=== PATIENT | female | born 1945 | race Caucasian/White ===

== ENCOUNTER → 2023-04-04 09:44 | Outpatient (REF) | payer MEDICARE, BC, SELFPAY ==
[2023-04-04 10:45] LABS: Free T4 1.64 ng/dl (0.78-2.19)
[2023-04-04 10:59] LABS: TSH 0.44 uIU/ml (0.47-4.68)
== END ==
LOC: OLABWHC 09:44
PROVIDERS: ATTENDING PHYSICIAN Internal Medicine
DX: E03.9 Hypothyroidism, unspecified (principal); D64.9 Anemia, unspecified
CPT/HCPCS: 36415; 84439; 84443

== ENCOUNTER → 2023-04-26 10:52 | Outpatient (REF) | payer MEDICARE, BC, SELFPAY ==
[2023-04-26 11:44] LABS: Urine Albumin Negative (Neg - Trace); Urine Bilirubin Negative (Negative); Urine Character Clear (Clear); Urine Color Yellow; Urine Glucose Negative (Negative); Urine Ketone Negative (Negative); Urine Leukocyte 1+ (Negative); Urine Nitrite Negative (Negative); Urine Occult Blood Negative (Negative); Urine Specific Gravity 1.015 (<1.030); Urine Urobilinogen Negative (Neg - 1+)
[2023-04-26 12:27] LABS: Urine Calcium Oxalate Crystals Present; Urine Red Blood Cell 0-2 /HPF (0-2); Urine Squamous Cell 0-2 /LPF (Few)
[2023-04-26 12:28] LABS: Urine Bacteria Few (Negative)
== END ==
LOC: OLABWHC 10:52
PROVIDERS: ATTENDING PHYSICIAN Internal Medicine
DX: N39.0 Urinary tract infection, site not specified (principal)
CPT/HCPCS: 81003; 81015; 87086

== ENCOUNTER → 2023-05-11 10:43 | Outpatient (REF) | payer MEDICARE, BC, SELFPAY ==
[2023-05-11 11:03] LABS: % Basophils 0.6 % (0-2); % Eosinophils 3.1 % (0-6); % Immature Granulocytes 0.8 % (0-0.5); % Lymphocytes 26.5 % (20.5-51.1); % Monocytes 17.3 % (1.7-9.3); % Neutrophils 51.7 % (42.2-75.2); Absolute Eosinophils 0.1 10^3/uL (0-0.7); Absolute Monocytes 0.6 10^3/uL (0.1-0.6); Absolute Neutrophils 1.9 10^3/uL (1.4-6.5); Hematocrit 30.3 % (37.0-47.0); Hemoglobin 10.1 g/dL (12.0-16.0); Mean Corp Hgb Conc. 33.3 g/dL (33.0-37.0); Mean Corpuscular Hgb 30.6 pg (27.0-31.0); Mean Corpuscular Volume 91.8 fL (81.0-99.0); Mean Platelet Volume 9.3 fL (7.4-10.4); Nucleated Red Blood Cells % 0 %; Platelet Count 119 10^3/uL (130-400); Red Cell Dist. Width 14.3 % (11.5-14.5); White Blood Cell Count 3.6 10^3/uL (4.8-10.8)
[2023-05-11 11:45] LABS: ALT (SGPT) 11 U/L (0-35); AST (SGOT) 25 U/L (14-36); Alkaline Phosphatase 63 U/L (38-126); Blood Urea Nitrogen 22 mg/dl (7-17); Calcium 9.3 mg/dl (8.4-10.2); Carbon Dioxide 23 mmol/L (22-30); Chloride 106 mmol/L (98-107); Glucose 84 mg/dl (70-99); Magnesium 1.5 mg/dl (1.6-2.3); Potassium 4.2 mmol/L (3.5-5.1); Sodium 133 mmol/L (135-145); Total Bilirubin 0.5 mg/dl (0.2-1.3); Total Protein 5.5 g/dl (6.3-8.2)
[2023-05-11 12:05] LABS: Urine Albumin Negative (Neg - Trace); Urine Bilirubin Negative (Negative); Urine Character Clear (Clear); Urine Color Yellow; Urine Glucose Negative (Negative); Urine Ketone Negative (Negative); Urine Leukocyte 2+ (Negative); Urine Nitrite Negative (Negative); Urine Occult Blood 1+ (Negative); Urine Specific Gravity 1.015 (<1.030); Urine Urobilinogen Negative (Neg - 1+)
[2023-05-11 13:13] LABS: Urine Bacteria Moderate (Negative); Urine White Cell 26-30 /HPF (0-5)
== END ==
LOC: OLABWHC 10:43
PROVIDERS: ATTENDING PHYSICIAN Internal Medicine
DX: N39.0 Urinary tract infection, site not specified (principal)
CPT/HCPCS: 80053; 81003; 81015; 83735; 85025; 87086; 87147; 87186

== ENCOUNTER → 2023-05-23 11:21 | Outpatient (REF) | payer MEDICARE, BC, SELFPAY ==
[2023-05-23 13:08] LABS: Free T4 2.31 ng/dl (0.78-2.19)
[2023-05-23 13:22] LABS: TSH 0.11 uIU/ml (0.47-4.68)
== END ==
LOC: OLABWHC 11:21
PROVIDERS: ATTENDING PHYSICIAN Internal Medicine
DX: E03.9 Hypothyroidism, unspecified (principal)
CPT/HCPCS: 36415; 84439; 84443

== ENCOUNTER → 2023-06-22 10:24 | Outpatient (REF) | payer MEDICARE, BC, SELFPAY ==
[2023-06-22 11:18] LABS: Free T4 1.01 ng/dl (0.78-2.19)
[2023-06-22 11:38] LABS: TSH 2.49 uIU/ml (0.47-4.68)
== END ==
LOC: OLABWHC 10:24
PROVIDERS: ATTENDING PHYSICIAN Internal Medicine
DX: E03.9 Hypothyroidism, unspecified (principal)
CPT/HCPCS: 36415; 84439; 84443

== ENCOUNTER → 2023-07-22 11:04 | Outpatient (REF) | payer MEDICARE, BC, SELFPAY ==
[2023-07-22 11:46] LABS: Hematocrit 33.6 % (37.0-47.0); Hemoglobin 11.1 g/dL (12.0-16.0); Mean Corpuscular Hgb 31.7 pg (27.0-31.0); Mean Platelet Volume 9.9 fL (7.4-10.4); Platelet Count 164 10^3/uL (130-400); Red Cell Dist. Width 14.7 % (11.5-14.5); White Blood Cell Count 4.6 10^3/uL (4.8-10.8)
[2023-07-22 12:34] LABS: Free T4 1.14 ng/dl (0.78-2.19)
[2023-07-22 12:40] LABS: ALT (SGPT) < 10 U/L (0-35); AST (SGOT) 25 U/L (14-36); Albumin 3.9 g/dl (3.5-5.0); Alkaline Phosphatase 51 U/L (38-126); Blood Urea Nitrogen 13 mg/dl (7-17); Calcium 9.3 mg/dl (8.4-10.2); Carbon Dioxide 27 mmol/L (22-30); Chloride 102 mmol/L (98-107); Glucose 93 mg/dl (70-99); HDL Cholesterol 87 mg/dl; LDL Cholesterol, Calculated 70 mg/dl; Magnesium 1.9 mg/dl (1.6-2.3); Potassium 4.1 mmol/L (3.5-5.1); Sodium 140 mmol/L (135-145); Total Bilirubin 0.5 mg/dl (0.2-1.3); Total Cholesterol 168 mg/dl (50-199); Total Protein 6.4 g/dl (6.3-8.2); Triglyceride 57 mg/dl (10-149); Very Low Density Lipoprotein 11 mg/dl (0-30); eGFR > 60.00
[2023-07-22 12:47] LABS: TSH 5.02 uIU/ml (0.47-4.68)
[2023-07-22 12:57] LABS: Glycohemoglobin (HgbA1c) 5.3 % (4.0-5.6)
== END ==
LOC: OLABWHC 11:04
PROVIDERS: ATTENDING PHYSICIAN Internal Medicine
DX: Z85.3 Personal history of malignant neoplasm of breast (principal); D50.9 Iron deficiency anemia, unspecified; Z79.01 Long term (current) use of anticoagulants; E53.9 Vitamin B deficiency, unspecified; E03.9 Hypothyroidism, unspecified; E87.6 Hypokalemia; E78.5 Hyperlipidemia, unspecified; E55.9 Vitamin D deficiency, unspecified; E11.9 Type 2 diabetes mellitus without complications
CPT/HCPCS: 36415; 80053; 80061; 83036; 83735; 84439; 84443; 85027

== ENCOUNTER → 2023-09-09 09:51 | Outpatient (REF) | payer MEDICARE, BC, SELFPAY ==
[2023-09-09 12:40] LABS: ALT (SGPT) < 10 U/L (0-35); AST (SGOT) 26 U/L (14-36); Albumin 3.9 g/dl (3.5-5.0); Alkaline Phosphatase 64 U/L (38-126); Blood Urea Nitrogen 18 mg/dl (7-17); Calcium 9.4 mg/dl (8.4-10.2); Carbon Dioxide 29 mmol/L (22-30); Chloride 99 mmol/L (98-107); Glucose 97 mg/dl (70-99); Potassium 4.1 mmol/L (3.5-5.1); Sodium 133 mmol/L (135-145); Total Bilirubin 0.5 mg/dl (0.2-1.3); Total Protein 6.1 g/dl (6.3-8.2); eGFR > 60.00
== END ==
LOC: OLABWHC 09:51
PROVIDERS: ATTENDING PHYSICIAN Internal Medicine
DX: I89.0 Lymphedema, not elsewhere classified (principal); R60.9 Edema, unspecified; E87.6 Hypokalemia
CPT/HCPCS: 80053

== ENCOUNTER → 2023-09-14 14:09 | Outpatient (REF) | payer MEDICARE, BC, SELFPAY ==
[2023-09-14 16:22] LABS: Blood Urea Nitrogen 15 mg/dl (7-17); Calcium 9.1 mg/dl (8.4-10.2); Carbon Dioxide 32 mmol/L (22-30); Chloride 91 mmol/L (98-107); Glucose 87 mg/dl (70-99); Potassium 3.5 mmol/L (3.5-5.1); Sodium 129 mmol/L (135-145); eGFR > 60.00
== END ==
LOC: OLABWHC 14:09
PROVIDERS: ATTENDING PHYSICIAN Internal Medicine
DX: I73.9 Peripheral vascular disease, unspecified (principal); I89.0 Lymphedema, not elsewhere classified; E44.0 Moderate protein-calorie malnutrition
CPT/HCPCS: 36415; 80048

== ENCOUNTER → 2023-09-19 13:15 | Outpatient (REF) | payer MEDICARE, BC, SELFPAY ==
[2023-09-19 15:48] LABS: Blood Urea Nitrogen 22 mg/dl (7-17); Calcium 9.6 mg/dl (8.4-10.2); Carbon Dioxide 32 mmol/L (22-30); Chloride 90 mmol/L (98-107); Glucose 87 mg/dl (70-99); Potassium 3.3 mmol/L (3.5-5.1); Sodium 129 mmol/L (135-145); eGFR > 60.00
== END ==
LOC: OLABWHC 13:15
PROVIDERS: FAMILY PHYSICIAN Internal Medicine
DX: I10 Essential (primary) hypertension (principal); I89.0 Lymphedema, not elsewhere classified; R60.9 Edema, unspecified
CPT/HCPCS: 80048

== ENCOUNTER → 2023-09-26 10:36 | Outpatient (REF) | payer MEDICARE, BC, SELFPAY ==
[2023-09-26 12:12] LABS: Blood Urea Nitrogen 24 mg/dl (7-17); Calcium 9.3 mg/dl (8.4-10.2); Carbon Dioxide 23 mmol/L (22-30); Chloride 100 mmol/L (98-107); Glucose 120 mg/dl (70-99); Potassium 4.2 mmol/L (3.5-5.1); Sodium 133 mmol/L (135-145); eGFR > 60.00
== END ==
LOC: OLABWHC 10:36
PROVIDERS: ATTENDING PHYSICIAN Internal Medicine
DX: I89.0 Lymphedema, not elsewhere classified (principal); Z85.3 Personal history of malignant neoplasm of breast; D50.9 Iron deficiency anemia, unspecified; E53.9 Vitamin B deficiency, unspecified; E87.6 Hypokalemia; E44.0 Moderate protein-calorie malnutrition
CPT/HCPCS: 36415; 80048

== ENCOUNTER → 2023-10-04 10:24 | Outpatient (REF) | payer MEDICARE, BC, SELFPAY ==
[2023-10-04 11:59] LABS: Blood Urea Nitrogen 23 mg/dl (7-17); Calcium 9.4 mg/dl (8.4-10.2); Carbon Dioxide 25 mmol/L (22-30); Chloride 98 mmol/L (98-107); Glucose 97 mg/dl (70-99); Sodium 132 mmol/L (135-145); eGFR > 60.00
== END ==
LOC: OLABWHC 10:24
PROVIDERS: ATTENDING PHYSICIAN Internal Medicine
DX: I10 Essential (primary) hypertension (principal); I73.9 Peripheral vascular disease, unspecified; Z79.01 Long term (current) use of anticoagulants
CPT/HCPCS: 36415; 80048

== ENCOUNTER 2024-06-05 16:22 | Inpatient (IN) | payer MEDICARE, BC, SELFPAY ==
[2024-06-05] VITALS (22 sets, daily range): BP systolic 86–149; BP diastolic 27–94; BMI 23.5; BMI 25.4
[2024-06-05 12:33] LABS: % Basophils 0.2 % (0-2); % Eosinophils 2.2 % (0-6); % Immature Granulocytes 0.7 % (0-0.5); % Lymphocytes 14.6 % (20.5-51.1); % Monocytes 11.2 % (1.7-9.3); % Neutrophils 71.1 % (42.2-75.2); Absolute Eosinophils 0.1 10^3/uL (0-0.7); Absolute Lymphocytes 0.7 10^3/uL (1.2-3.4); Absolute Monocytes 0.5 10^3/uL (0.1-0.6); Absolute Neutrophils 3.2 10^3/uL (1.4-6.5); Hematocrit 19.8 % (37.0-47.0); Hemoglobin 5.5 g/dL (12.0-16.0); Mean Corp Hgb Conc. 27.8 g/dL (33.0-37.0); Mean Corpuscular Hgb 21.5 pg (27.0-31.0); Mean Corpuscular Volume 77.3 fL (81.0-99.0); Mean Platelet Volume 10.1 fL (7.4-10.4); Nucleated Red Blood Cells % 0.7 %; Platelet Count 97 10^3/uL (130-400); Red Blood Cell Count 2.56 10^6/uL (4.20-5.40); Red Cell Dist. Width 18.9 % (11.5-14.5); White Blood Cell Count 4.5 10^3/uL (4.8-10.8)
--- NOTE | 2024-06-05 12:49 | ED.GENMED ---
History of Present Illness
General
Chief Complaint: Abnormal Lab Value
Source: patient and ambulance crew
Exam Limitations: none
Time Seen by Provider: 06/05/24 12:30
History of Present Illness
History of Present Illness:
79yoF with a history of hypertension, hyperlipidemia, DVT on Eliquis, and hypothyroidism presenting via EMS for evaluation of an abnormal outpatient lab. Patient is a resident at [facility]. She had routine labs yesterday and was found to have
a hemoglobin of 4.9. Last hemoglobin was 11.1 in July 2023. Her only current complaint is bilateral leg pain which she admits is chronic. She denies any hematochezia or melena. No shortness of breath or syncope.
Past History
Past History
ED Past Medical History: HTN, Hypothyroidism, Other (Degenerative joint disease) and Other (DVT)
ED Past Surgical History: Orthopedic (Left wrist surgery)
Social History
Tobacco: Former smoker
Alcohol: None
Drug: None
Living: assisted living
Phy Exam
Physical Exam
Physical Exam:
Chronically ill appearing, pale, no acute distress
General Physical Exam
General Presentation: no apparent distress
General Skin: warm, dry and pale
General Habitus: elderly
ENT Exam
ENT Exam: normocephalic
Cardiovascular Exam
Cardiovascular Exam: regular rate/rhythm
Pulmonary Exam
Pulmonary Exam: lungs clear, no respiratory distress, no rales, no crackles and no rhonchi
Gastrointestinal Exam
Gastrointestinal Exam: other (Stool brown, hemoccult negative)
Neurological Exam
Neurological Exam: alert
Skin Exam
Skin Exam: warm/dry and pallor
Psychiatric Exam
Psychiatric Exam: normal mood/affect
Course
Orders/Labs/Results
Orders:
Orders
06/05/24 12:18
EKG [Electrocardiogram (*1)] Urgent
Reason for Study: Fatigue / Weakness
EKG- Treatment ONCE
06/05/24 12:19
Type+Screen Urgent
BBK Wristband Number:
Complete Blood Count/With Diff Urgent
Comprehensive Metabolic Panel Urgent
06/05/24 12:41
Blood Bank Products [* Blood Bank Products] Urgent
Blood Bank Products: *Packed RBC Leuko(PRBC's)
Quantity: 2
Transfuse Today: Yes
Reason: Anemia
06/05/24 15:38
Bladder Scan- Treatment ONCE
Straight cath- Treatment ONCE
Abnormal Lab Results
06/05/24
12:19
WBC 4.5 L 10^3/uL
(4.8-10.8)
RBC 2.56 L 10^6/uL
(4.20-5.40)
Hgb 5.5 L* g/dL
(12.0-16.0)
Hct 19.8 L* %
(37.0-47.0)
MCV 77.3 L fL
(81.0-99.0)
MCH 21.5 L pg
(27.0-31.0)
MCHC 27.8 L g/dL
(33.0-37.0)
RDW 18.9 H %
(11.5-14.5)
Plt Count 97 L D 10^3/uL
(130-400)
Absolute Lymphs (auto) 0.7 L 10^3/uL
(1.2-3.4)
Immature Gran % 0.7 H %
(0-0.5)
Lymphocytes % 14.6 L %
(20.5-51.1)
Monocytes % 11.2 H %
(1.7-9.3)
Glucose 104 H mg/dl
(70-99)
Total Protein 5.1 L g/dl
(6.3-8.2)
Albumin 2.8 L g/dl
(3.5-5.0)
Crossmatch IS Only See Detail
06/05/24 12:19
06/05/24 12:19
Vital Signs
Initial and Last Documented VS:
Initial Vital Signs
BP
86/73
06/05/24 12:11
Last Documented Vital Signs
Temp Pulse Resp BP Pulse Ox
98.6 F 77 20 134/58 94
06/05/24 15:11 06/05/24 15:11 06/05/24 15:11 06/05/24 15:11 06/05/24 15:11
MDM/Problems Addressed
Differential Diagnosis Includes:
79yoF here for a hemoglobin of 4.9 on outpatient labs yesterday. Denies any active bleeding. Last hemoglobin in July 2023 was 11.1. BP documented as 86/73 on arrival although she is normotensive on initial exam. She is pale and chronically ill
appearing but non toxic. Stool brown and hemoccult negative. Differential diagnosis includes but is not limited to: blood loss anemia, malignancy, anemia of chronic disease, MAHENDRA
Hemoglobin 5.5 on today's labs. Consent obtained and 2 units PRBCs ordered. Platelets also low at 97. Patient admitted for further evaluation and management.
*Critical Care Note
Total Time (30-74mins, 75-104mins- exclusive of procedures): Not Applicable
ED Attending Note
-
Portions of this chart may have been created with voice recognition software.� Occasional wrong word or��sound alike� substitutions may have occurred due to the inherent limitations of voice recognition software.
Discharge Plan
Departure
Patient Disposition: Admit
Date of Disposition: 06/05/24
Time of Disposition: 13:47
Presentation/result/management discussed w/ accepting MD/DO: Hospitalist
Discharge Problem:
Anemia
Prescriptions:
No Action
labetalol 100 MG tablet
100 mg PO BID
letrozole 2.5 MG tablet
2.5 mg PO DAILY
multivitamin with folic acid [Tab-A-Genesis] 1 TABLET tablet
1 tab PO DAILY
cholecalciferol (vitamin D3) 125 MCG tablet,disintegrating
125 mcg PO MONTHLY
acetaminophen 325 MG tablet
650 mg PO Q6HPRN PRN (Reason: mild to moderate pain)
levothyroxine 100 MCG tablet
50 mcg PO DAILY
Eliquis 2.5 MG tablet
2.5 mg PO BID Qty: 60 0RF
alendronate [Fosamax] 70 mg Tablet
70 mg PO FR
sodium chloride 1 gram Tablet
1,000 mg PO DAILY
magnesium hydroxide [Milk of Magnesia] 400 mg/5 mL Suspension
2,400 mg PO HSPRN PRN (Reason: if no bm by 2nd day)
bisacodyl [Dulcolax (bisacodyl)] 10 mg Suppository
10 mg MT DAILYPRN PRN (Reason: if no bm by 3rd day)
Fleet Enema 19-7 gram/118 mL Enema
118 ml MT DAILYPRN PRN (Reason: if no bm by 4th day)
nystatin 100,000 unit/gram Powder
1 applic TOPICAL BIDPRN PRN (Reason: groin/folds)
fluoxetine 20 mg Capsule
20 mg PO DAILY
fluoride (sodium) [PreviDent] 1.1 % Gel
1 applic DENTAL HS
oxycodone 5 mg Tablet
5 mg PO Q6HPRN PRN (Reason: severe pain)
chlorhexidine gluconate [Peridex] 0.12 % Mouthwash
15 ml BUCCAL BID
potassium chloride 20 mEq Tablet Extended Release
20 meq PO BID
oxycodone [OxyContin] 15 mg Tablet,Oral Only,Ext.Rel.12 Hr
15 mg PO BID
furosemide 40 MG tablet
20 mg PO DAILY
gabapentin 100 MG capsule
200 mg PO TID
Referrals:
Palatt,Elton I., MD [Family Provider] -
Interventions
Interventions:
*Risk Screen - Suicide Last Done: 06/05/24 12:32
*General Assessment Last Done: 06/05/24 12:32
*Neglect/Abuse Screening Last Done: 06/05/24 12:32
*ED- Fall Risk Assessment Last Done: 06/05/24 12:32
*ED COVID-19 Vaccine History Last Done: 06/05/24 12:32
Discharge Date and Time
Print Language: CITIZEN OF [place]
[2024-06-05 12:57] LABS: ALT (SGPT) 14 U/L (0-35); AST (SGOT) 27 U/L (14-36); Albumin 2.8 g/dl (3.5-5.0); Alkaline Phosphatase 58 U/L (38-126); Blood Urea Nitrogen 12 mg/dl (7-17); Calcium 8.9 mg/dl (8.4-10.2); Carbon Dioxide 26 mmol/L (22-30); Chloride 105 mmol/L (98-107); Estimated Creatinine Clearance 39 ml/min; Glucose 104 mg/dl (70-99); Potassium 4.5 mmol/L (3.5-5.1); Sodium 137 mmol/L (135-145); Total Bilirubin 0.6 mg/dl (0.2-1.3); Total Protein 5.1 g/dl (6.3-8.2); eGFR > 60.00
[2024-06-05 13:09] LABS: Normal RBC Morphology No
[2024-06-05 13:10] LABS: Anisocytosis 1+; Hypochromasia 2+; Polychromasia Slight
--- NOTE | 2024-06-05 15:38 | EDRN ---
the pt stated that she felt like she had to pee and couldn't, this RN notified Dr. Chase and bladder scanned the pt for 853cc, per Dr. Chase's orders this RN attempted to straight cath the pt with no success, Dr. Chase will notify urology
--- NOTE | 2024-06-05 16:08 | HPS.HSE ---
Addendum entered and electronically signed by Marcelle Chase MD 06/05/24 17:40:
I personally performed a history and physical exam of the patient and discussed management with the resident. I reviewed the resident's note and agree with the documented findings and plan of care HPI/CC.
GENERAL: well developed, well nourished, female in no apparent distress
HEENT: NC/AT
HEART: regular rate and rhythm, +S1, +S2
LUNGS : clear to auscultation bilaterally
ABDOM: soft, nontender, nondistended, + bowel sounds
EXT: no cyanosis, clubbing, 4+ LE edema bilaterally--tubigrip socks taken off as not appropriately placed and pt complaining of pain--contractures to extremities
NEUROLOGIC: grossly intact
SKIN: multiple scabs from skin picking
Anemia--likely acute on chronic--Does not look like acute blood loss or hemolysis (pt denies hemoptysis, hematemesis, melena, black or bloody stools)--await iron studies, B12, folate, retic count--does not appear to be on iron supplements so IF iron
deficiency anemia, would consider GI workup--also consider heme eval--getting 2 units pRBC --trend H&H--hold eliquis
Bilateral lower extremity swelling L>R--could be due to lymphedema--doubt DVT with eliquis--will check LE US for completeness
Acute urinary retention--853 on bladder scan, unable to straight cath--Consult urology
Hypothyroidism--Continue levothyroxine--check TSH
Essential hypertension--Continue labetalol and Lasix
History of DVT 2021--Unsure why she has been on Eliquis so long--check LE US
History of breast cancer--Continue letrozole
History of osteoporosis--Continue alendronate
History of vitamin D deficiency--Continue cholecalciferol
SCD for DVT proph
code status-- DNR
Original Note:
Family Physician
-
Family Physician: Elton López MD
Chief Complaint
-
low hemoglobin on outpatient lab
History of Present Illness
79-year-old female with history of DVT on Eliquis, osteoporosis, breast cancer, LE venous stasis dermatitis presented from [facility] due to low hemoglobin levels on outpatient lab. Her routine labs showed hemoglobin was 4.9 when she came in the ED is
5.5. She was given 2 units of blood in the ED. She denies hematuria, hematochezia, hemoptysis, chest pain, palpitations, shortness of breath, fatigue.
Medical History
Past Medical History
Past Medical History: Reports Cancer (breast ) and HTN
Past Surgical History: Reports Other (Mastectomy unsure which side )
Social History
Tobacco: Former Smoker
Alcohol: None
Drug: None
Living: Long-Term
Employment: Retired
Family History
Family History: Not pertinent
Allergies / Home Medications
Allergies reflects when Allergies were last updated in [employer].
Home Medications with original date entered in [employer]
Allergy/Medication List:
Allergies
Allergy/AdvReac Type Severity Reaction Status Date / Time
No Known Allergies Allergy Verified 04/13/21 12:09
Home Medications
labetalol 100 mg tablet 100 mg PO BID Blood pressure 09/04/15
cholecalciferol (vitamin D3) 125 mcg (5,000 unit) disintegrating tablet 125 mcg PO MONTHLY Supplement 07/18/20
letrozole 2.5 mg tablet 2.5 mg PO DAILY CA 07/18/20
multivitamin with folic acid 400 mcg tablet (Tab-A-Genesis) 1 tab PO DAILY Supplement 07/18/20
acetaminophen 325 mg tablet 650 mg PO Q6HPRN PRN mild to moderate pain 03/23/21
levothyroxine 100 mcg tablet 50 mcg PO DAILY Thyroid 03/23/21
apixaban 2.5 mg tablet (Eliquis) 2.5 mg PO BID #60 tabs 03/30/21
alendronate 70 mg tablet (Fosamax) 70 mg PO FR 06/05/24
bisacodyl 10 mg rectal suppository (Dulcolax (bisacodyl)) 10 mg IN DAILYPRN PRN if no bm by 3rd day 06/05/24
chlorhexidine gluconate 0.12 % mouthwash (Peridex) 15 ml buccal BID 06/05/24
fluoride (sodium) 1.1 % dental gel (PreviDent) 1 applic dental HS 06/05/24
fluoxetine 20 mg capsule 20 mg PO DAILY 06/05/24
furosemide 40 mg tablet 20 mg PO DAILY 06/05/24
gabapentin 100 mg capsule 200 mg PO TID 06/05/24
magnesium hydroxide 400 mg/5 mL oral suspension (Milk of Magnesia) 2,400 mg PO HSPRN PRN if no bm by 2nd day 06/05/24
nystatin 100,000 unit/gram topical powder 1 applic topical BIDPRN PRN groin/folds 06/05/24
oxycodone 15 mg tablet,crush resistant,extended release 12 hr (OxyContin) 15 mg PO BID 06/05/24
oxycodone 5 mg tablet 5 mg PO Q6HPRN PRN severe pain 06/05/24
potassium chloride 20 mEq tablet,extended release 20 meq PO BID 06/05/24
sodium chloride 1 gram tablet 1,000 mg PO DAILY 06/05/24
sodium phosphates 19 gram-7 gram/118 mL enema (Fleet Enema) 118 ml IN DAILYPRN PRN if no bm by 4th day 06/05/24
Review of Systems
-
History Source: Patient
A 12 point ROS was completed and negative except as noted: Yes
Physical Exam
Vital Signs
Vital Signs
Temp Pulse Resp BP Pulse Ox
97.6 F 79 16 131/70 98
06/05/24 16:03 06/05/24 16:03 06/05/24 16:03 06/05/24 16:03 06/05/24 16:03
Physical Exam
General: No Apparent Distress and Comfortable
HEENT: NormoCephalic and Anicteric
Respiratory: Clear; No Wheezes, Rales, Rhonchi or Crackles
Cardiac: S1/S2, Regular Rhythm and Murmur (systolic HONEY )
GI: Soft, Non Tender, Non Distended and Normal Bowel Sounds
Musculoskeletal: Edema, Left Lower Extremity (2+ pitting)
Skin: Other (Purplish discoloration in the lower extremities concerns for venous stasis dermatitis)
Neuro: AO x 3
Psych: Calm
Laboratory Results
-
06/05/24 12:19
06/05/24 12:19
Laboratory Results
Total Bilirubin 0.6 mg/dl (0.2-1.3) 06/05/24 12:19
AST 27 U/L (14-36) 06/05/24 12:19
ALT 14 U/L (0-35) 06/05/24 12:19
Alkaline Phosphatase 58 U/L (38-126) 06/05/24 12:19
Data Reviewed
-
Lab Data: Labs Reviewed by me and Discussed with Physician
Impression/Plan
-
IMPRESSION:
Anemia possibly acute on chronic
Bilateral lower extremity swelling L>R
Acute urinary retention
History of iron deficiency anemia
Hypothyroidism
Essential hypertension
History of DVT
History of breast cancer
History of osteoporosis
History of vitamin D deficiency
PLAN:
Anemia possibly acute on chronic
Does not look like acute blood loss or destruction of heme
Suspect low heme reserve
Check iron, TIBC, reticulocyte count, B12, folate
Received 2 units of PRBC in ED
Hold Eliquis for now
Trend H&H
Consider hematology consult in a.m.
Bilateral lower extremity swelling L>R
Unsure what the baseline is
Check bilateral venous ultrasound
Acute urinary retention
853 on bladder scan, unable to straight cath
Consult urology
History iron deficiency anemia
Check the above labs
Continue ferrous sulfate
Hypothyroidism
Continue levothyroxine
Essential hypertension
Continue labetalol and Lasix
History of DVT
Unsure why she has been on Eliquis
No history of A-fib
Check lower extremity ultrasound
Hold Eliquis
History of breast cancer
Continue letrozole
History of osteoporosis
Continue alendronate
History of vitamin D deficiency
Continue cholecalciferol
Holding Eliquis
SCD for DVT prophylaxis
Regular diet
DNR/DNI
[2024-06-05 16:31] LABS: Reticulocyte Count 2.5 % (0.4-2.8)
[2024-06-05 16:38] LABS: Iron 28 ug/dl (37-170)
--- NOTE | 2024-06-05 16:47 | CON.MD ---
Consultation - Medical
-
see dictated note
pt brought into ER for anemia
she reports no complaints
says she has been urinating normally- no hematuria
in ER- bladder scan over 800cc- due to pt's contractures-unable to place duarte
on exam- pt's legs contracted- hard to separate
some mild vaginal stenosis- no mass or bleeding noted on limited vaginal exam
with two nurses help- i was able to digitally guide duarte into bladder- prompt return of 700cc of clear urine- duarte clamped
plan
slowly drain bladder over the next hour
eliquis is on hold given anemia
no obvious hematuria/gu source of anemia
will follow and determine timing of TOV
[2024-06-05 16:48] LABS: Percent Saturation 8 % (20-50); Total Iron Binding Capacity 324 ug/dl (265-497)
--- NOTE | 2024-06-05 16:48 | EDRN ---
urology was at the pts bedside and placed an 18 moldovan coude indwelling urinary catheter
--- NOTE | 2024-06-05 16:55 | W.PN.UPDATE ---
Update Note
Progress Note Update
correction to H&P note
No history of MAHENDRA, patient is not currently taking ferrous sulfate at home
[2024-06-05 17:15] LABS: Ferritin 11.6 ng/ml (11.1-264.0)
[2024-06-05 17:40] LABS: Hemoglobin 8.3 g/dL (12.0-16.0)
[2024-06-05 17:46] LABS: Vitamin B12 305 pg/ml (239-931)
--- NOTE | 2024-06-05 18:13 | EDRN ---
this RN called the receiving unit and notified them that paper report was tubed up
--- NOTE | 2024-06-05 18:50 | PTCARENOTE ---
Received pt from ER via stretcher, accompanied by ER staff. Pt AAO x3 but very forgetful. BRANTLEY; weak; pt transferred to bed with assist x2. pt stated she 'can't lay flat- I have to sit up'. VSS. On room air- pulse ox 96%, no SOB noted. Abd
soft, rounded, to start regular diet. #18 F [place] patent large amts clear yellow urine. Afebrile; skin warm and dry; scattered bruises noted on arms; pt has scattered scabbed areas on Lt arm and along upper back. Pt with +1 edema RLE; +2 edema
LLE. Skin on lower legs/Rt foot dry and reddened. Oriented to 4East. Currently resting quietly. Will continue to monitor.
[2024-06-05] MEDS: KCL 20 MEQ PO (19:48)
[2024-06-05] MEDS: TRANDATE 100 MG PO (19:48)
[2024-06-05] MEDS: OXYCONTIN (CONTROLLED RELEASE) 15 MG PO (19:48)
[2024-06-05] MEDS: PERIDEX 0.12% ORAL RINSE 15 ML PO (19:49)
[2024-06-05 20:11] LABS: Hematocrit 27.9 % (37.0-47.0); Hemoglobin 8.8 g/dL (12.0-16.0)
[2024-06-05] MEDS: NEURONTIN 200 MG PO (21:47)
[2024-06-05] MEDS: ROXICODONE 5 MG PO (22:45)
[2024-06-06 02:24] LABS: Hemoglobin 8.4 g/dL (12.0-16.0)
[2024-06-06] MEDS: SYNTHROID 50 MCG PO (05:10)
[2024-06-06 07:30] VITALS: BP 119/49
[2024-06-06 07:43] LABS: Hematocrit 28.7 % (37.0-47.0); Hemoglobin 8.9 g/dL (12.0-16.0); Mean Corpuscular Hgb 24.9 pg (27.0-31.0); Mean Corpuscular Volume 80.4 fL (81.0-99.0); Mean Platelet Volume 9.7 fL (7.4-10.4); Platelet Count 93 10^3/uL (130-400); Red Blood Cell Count 3.57 10^6/uL (4.20-5.40); Red Cell Dist. Width 18.6 % (11.5-14.5); White Blood Cell Count 4.4 10^3/uL (4.8-10.8)
[2024-06-06 08:16] LABS: Blood Urea Nitrogen 10 mg/dl (7-17); Calcium 8.7 mg/dl (8.4-10.2); Carbon Dioxide 26 mmol/L (22-30); Chloride 107 mmol/L (98-107); Estimated Creatinine Clearance 35 ml/min; Glucose 89 mg/dl (70-99); Magnesium 1.8 mg/dl (1.6-2.3); Potassium 4.2 mmol/L (3.5-5.1); Sodium 140 mmol/L (135-145); eGFR > 60.00
[2024-06-06] MEDS: KCL 20 MEQ PO ×2 (08:27→20:08)
[2024-06-06] MEDS: PERIDEX 0.12% ORAL RINSE 15 ML PO ×2 (08:27→20:08)
[2024-06-06] MEDS: VITAMIN B-12 250 MCG PO (08:27)
[2024-06-06] MEDS: SODIUM CHLORIDE 1 GRAM PO (08:27)
[2024-06-06] MEDS: TRANDATE 100 MG PO ×2 (08:28→20:03)
[2024-06-06] MEDS: PROZAC 20 MG PO (08:28)
[2024-06-06] MEDS: OXYCONTIN (CONTROLLED RELEASE) 15 MG PO ×2 (08:28→20:08)
[2024-06-06] MEDS: FEMARA 2.5 MG PO (08:28)
[2024-06-06] MEDS: THERAGRAN 1 TABLET PO (08:28)
[2024-06-06] MEDS: NEURONTIN 200 MG PO ×3 (08:28→21:28)
[2024-06-06] MEDS: LASIX 20 MG PO (08:28)
[2024-06-06] MEDS: FEOSOL PO ×2 (08:29→08:40)
--- NOTE | 2024-06-06 08:30 | W.PN.URO.CBU ---
Today's Communication / Plan
-
continue duarte
Assessment / Plan
-
urinary retention
very difficult duarte
suspect retention may be chronic given volume of urine in the bladder
would hold eliquis today to guard against hematuria as upsizing cath would be difficult
will discuss plan with med team- will likely suggest discharge with duarte and outpt TOV
Diagnosis
-
Date of Service: June 06, 2024
-
Patient Diagnosis:
anemia
urinary retention
difficult duarte placement
Subjective
-
pt has no complaints
did not realize cath was still in
urine clear
denies any problems urinating at home
Objective
-
Vital Signs
Temp Pulse Resp BP Pulse Ox
98.9 F 77 20 119/49 93
06/06/24 07:30 06/06/24 07:30 06/06/24 07:30 06/06/24 07:30 06/06/24 07:30
Intake and Output
06/05/24 06/06/24 06/07/24
06:59 06:59 06:59
Intake Total 500 / 500
Output Total 1550 / 1550
Balance -1050 / -1050
Intake:
Oral fluids 0 / 0
Blood Product Amount Infused ( 500 / 500
mL)
Packed Rbc Leukoreduced Unit 250 / 250
[id number]
Packed Rbc Leukoreduced Unit 250 / 250
[id number]
Output:
Urine, Duarte 1550 / 1550
Laboratory Results
06/06/24 07:00
Review of Systems
-
Constitutional: Fatigue
Respiratory: No Symptoms
Cardiac: No Symptoms
Abdomen/GI: No Symptoms
Musculoskeletal: Joint Pain
Physical Exam
-
General - no acute distress
Abdomen - soft, non-tender
Genitalia - duarte in place
[2024-06-06] MEDS: MAGNESIUM SULFATE 100 IV (09:34)
--- NOTE | 2024-06-06 09:56 | CON.GI ---
Addendum entered and electronically signed by Lino Bolanos DO 06/06/24 13:48:
I saw and examined the patient.
The INFORMATICA DEVELOPER's note was reviewed and I agree with the note.
Comment: Ms. Clayton is a 79 y.o with past medical history as detailed below where she presented with SNF for anemia. She was found to have a Hgb 5s and labs demonstrating MAHENDRA. Otherwise, she denies any overt bloody and/or dark stools. Further, heme
(-) brown stools on exam on admission. She is on eliquis for her A Fib but no other NSAIDs or antiplatelets. She denies any unintentional weight loss or known family hx of GI malignancy. She has never had a prior EGD or colonoscopy in the past. The
etiology of her iron deficiency anemia is likely multifactorial and there may be a component of a hematological process as well. Regardless, patient would benefit from a bidirectional endoscopy for further evaluation of her significant iron
deficiency anemia. However, despite extensive conversations with both Jodie and myself with patient this afternoon, the patient declines any further workup and/or testing. She specifically stated that she does not want to undergo any further
procedures and demonstrated understanding that we could be potentially missing an occult neoplasm/malignancy. Despite extensive conversations, she demonstrated understanding that we may be missing a potential malignancy but again she declines any
further EGD/colon. If patient were to change her mind, would consider a bidirectional endoscopy this admission for further evaluation. For now, we will defer any plans for an upper endoscopy or colonoscopy given patient's wishes. Agree with the
rest of the recommendations as outlined below and ongoing supportive care.
Discussed with primary internal medicine team. GI will sign-off, please call back with any questions or concerns.
Original Note:
Consultation
-
Date/Time Consultation Requested: 06/06/24 0920
Date/Time Consultation Performed: 06/06/24 1000
Requesting Provider: Leopoldo Bowden MD
Performing Provider: DEMARCUS Martin, Lino Bolanos DO
Reason for Consultation: anemia
Medical History
Chief Complaint / HPI
Chief Complaint: abnormal labs
History of Present Illness:
Pt is an 79yo with hx DVT on Eliquis, moderate HH per prior imaging, osteoporosis on Fosamax, breast CA (? lumpectomy and radiation)on Letrazole, hypothyroidism,vitamin D Deficiency, DDD, scoliosis, venous stasis presents from SNF with anemia. On
admission she is noted with hb g 5.5 with MCV 77.3, with also noted pancytopenia with WBC 4.5 and platelet 97,000. Iron studies c/w with iron deficiency with iron 28, TIBC 324, % sat 8, and ferritin 11.6. Pt also with albumin 2.8. In review of
prior labs pt with hbg 81- range in last few years. In ER stool was brown and heme neg. she was also noted with urinary retention with urology eval on admission and difficulty duarte placement.
In review with patient she denies any symptoms. She denies shortness of breath, dysphagia, odynophagia, GERD, nausea, vomiting, abdominal pain, diarrhea, constipation, blood or black in stools. She denies any hx EGD or colonoscopy in past.
She denies any hx prior liver or hematology issues in past.
Past Medical History
Past Medical History: Cancer (breast CA(? lumpectomy and radiation)), Hypothyroidism and Other (DVT on eliquis, osteoporosis, venous stasis dermatitis, vitamin D deficiency, DDD, scoliosis , moderate HH)
Social History
Tobacco: Former Smoker
Alcohol: Former (social in past )
Drug: None
Living: [facility]
Employment: Retired
Family History
Family History: Other (denies family hx GI malignancies, or liver problems)
Allergies / Home Medications
Allergy/AdvReac Type Severity Reaction Status Date / Time
No Known Allergies Allergy Verified 04/13/21 12:09
�Medication �Instructions �Recorded
labetalol 100 mg tablet 100 mg PO BID Blood pressure 09/04/15
cholecalciferol (vitamin D3) 125 125 mcg PO MONTHLY Supplement 07/18/20
mcg (5,000 unit) disintegrating
tablet
letrozole 2.5 mg tablet 2.5 mg PO DAILY CA 07/18/20
multivitamin with folic acid 400 1 tab PO DAILY Supplement 07/18/20
mcg tablet (Tab-A-Genesis)
acetaminophen 325 mg tablet 650 mg PO Q6HPRN PRN mild to 03/23/21
moderate pain
levothyroxine 100 mcg tablet 50 mcg PO DAILY Thyroid 03/23/21
apixaban 2.5 mg tablet (Eliquis) 2.5 mg PO BID #60 tabs 03/30/21
alendronate 70 mg tablet (Fosamax) 70 mg PO FR BONE 06/05/24
bisacodyl 10 mg rectal suppository [address] DAILYPRN PRN if no bm by 06/05/24
(Dulcolax (bisacodyl)) 3rd day
chlorhexidine gluconate 0.12 % 15 ml buccal BID MOUTHWASH 06/05/24
mouthwash (Peridex)
fluoride (sodium) 1.1 % dental gel 1 applic dental HS MOUTH CARE 06/05/24
(PreviDent)
fluoxetine 20 mg capsule 20 mg PO DAILY Mental 06/05/24
Health/Anxiety
furosemide 40 mg tablet 20 mg PO DAILY Fluid 06/05/24
Retention/Swelling
gabapentin 100 mg capsule 200 mg PO TID NEUROPATHIC PAIN 06/05/24
magnesium hydroxide 400 mg/5 mL 2,400 mg PO HSPRN PRN if no bm by 06/05/24
oral suspension (Milk of Magnesia) 2nd day
nystatin 100,000 unit/gram topical 1 applic topical BIDPRN PRN 06/05/24
powder groin/folds
oxycodone 15 mg tablet,crush 15 mg PO BID Pain 06/05/24
resistant,extended release 12 hr
(OxyContin)
oxycodone 5 mg tablet 5 mg PO Q6HPRN PRN severe pain 06/05/24
potassium chloride 20 mEq 20 meq PO BID Supplement 06/05/24
tablet,extended release
sodium chloride 1 gram tablet 1,000 mg PO DAILY Supplement 06/05/24
sodium phosphates 19 gram-[address] DAILYPRN PRN if no bm by 06/05/24
gram/118 mL enema (Fleet Enema) 4th day
Review of Systems
-
History Source: Patient
Constitutional: Reports No Symptoms
EENT: Reports No Symptoms
Respiratory: Reports No Symptoms
Cardiac: Reports No Symptoms
Abdomen/GI: Reports No Symptoms
: Reports Difficulty Voiding
Musculoskeletal: Reports Joint Pain
Skin: Reports No Symptoms
Neurological: Reports No Symptoms
Endocrine: Reports No Symptoms
Hematologic/Lymphatic: Reports No Symptoms
Vital Signs
Temp Pulse Resp BP Pulse Ox
98.9 F 77 20 119/49 93
06/06/24 07:30 06/06/24 07:30 06/06/24 07:30 06/06/24 08:28 06/06/24 07:30
Physical Exam
Exam
General: Well Developed, Well Nourished, No Apparent Distress and Other (elderly female with noted spinal asymmetry in chair )
HEENT: Normocephalic
Respiratory: Clear
Cardiac: Regular Rhythm
GI: Soft, Non Tender and Non Distended
Rectal: Other (heme neg in ER)
Musculoskeletal: No Clubbing and No Cyanosis
Skin: Warm and Dry
Neuro: Awake, Alert and AO x 3
Psych: Calm
Results
WBC 4.4 10^3/uL (4.8-10.8) L 06/06/24 07:00
Hgb 8.9 g/dL (12.0-16.0) L 06/06/24 07:00
Hct 28.7 % (37.0-47.0) L 06/06/24 07:00
MCV 80.4 fL (81.0-99.0) L 06/06/24 07:00
Plt Count 93 10^3/uL (130-400) L 06/06/24 07:00
Absolute Neuts (auto) 3.2 10^3/uL (1.4-6.5) 06/05/24 12:19
Sodium 140 mmol/L (135-145) 06/06/24 07:00
Potassium 4.2 mmol/L (3.5-5.1) 06/06/24 07:00
Chloride 107 mmol/L (98-107) 06/06/24 07:00
Carbon Dioxide 26 mmol/L (22-30) 06/06/24 07:00
BUN 10 mg/dl (7-17) 06/06/24 07:00
Creatinine 0.9 mg/dL (0.6-1.0) 06/06/24 07:00
Calcium 8.7 mg/dl (8.4-10.2) 06/06/24 07:00
Total Bilirubin 0.6 mg/dl (0.2-1.3) 06/05/24 12:19
AST 27 U/L (14-36) 06/05/24 12:19
ALT 14 U/L (0-35) 06/05/24 12:19
Alkaline Phosphatase 58 U/L (38-126) 06/05/24 12:19
Diagnostic Image Results:
03/26/21 CT Abd Aorta Angio W/ Run Off
IMPRESSION:
1. Severe diffuse anasarca.
2. Severe subcutaneous edema throughout both lower extremities which could be secondary to venous stasis or cellulitis.
3. No CT evidence for soft tissue abscess or acute osteomyelitis.
4. Small volume of abdominal and pelvic ascites.
5. Severe discogenic degenerative disease in the lower thoracic and upper lumbar spine.
6. Severe arthritis in the right hip and moderate arthritis in the left hip.
ABDOMINAL AORTA:
1. Moderate to severe calcific atherosclerotic plaque without evidence for aneurysmal dilatation.
2. Mild calcific atherosclerotic plaque at the origins of the celiac, superior mesenteric, and bilateral renal arteries causing less than 25% diameter stenoses.
RIGHT LOWER EXTREMITY:
1. Severe calcific atherosclerotic plaque in the proximal right common iliac artery causing a greater than 70% diameter stenosis.
2. Mild amount of calcific atherosclerotic plaque in the right external iliac, right common femoral, right superficial femoral, and right popliteal arteries causing less than 25% diameter stenosis.
3. Moderate amount of calcific atherosclerotic plaque in the proximal anterior tibial artery and tibioperoneal trunk causing less than 50% diameter stenoses.
4. Three-vessel runoff to the right foot.
LEFT LOWER EXTREMITY:
1. Severe calcific atherosclerotic plaque in the distal left common iliac artery causing a greater than 70% diameter stenosis.
2. Mild amount of calcific atherosclerotic plaque in the left external iliac and left common femoral arteries causing less than 25% diameter stenosis.
3. Moderate to large amount of calcific atherosclerotic plaque in the left mid superficial femoral artery causing a 50-70% diameter stenosis.
4. Occlusion of the left posterior tibial artery in the lower leg.
5. Patent left anterior tibial and peroneal arteries with two-vessel runoff to the level of the left foot.
12/04/20 CT Lumbar Spine W/o Iv Contras
Thoracolumbar scoliosis again identified without significant progression.
Degenerative changes throughout the lumbar spine with some progression in comparison to prior MRI with spinal stenosis most prominent at the L3-L4 levels.
Please see above comments concerning disc bulges.
Likely small bilateral pleural effusions and at least moderate size hiatal hernia suspected.
Prior GI Procedures:
EGD: none
Colonoscopy: none
Assessment / Plan
-
Pt is an 79yo with hx DVT on Eliquis, moderate HH per prior imaging, osteoporosis on Fosamax, breast CA (? lumpectomy and radiation)on Letrazole, hypothyroidism,vitamin D Deficiency, DDD, scoliosis, venous stasis presents from SNF with anemia. On
admission she is noted with hb g 5.5 with MCV 77.3, with also noted pancytopenia with WBC 4.5 and platelet 97,000. Iron studies c/w with iron deficiency with iron 28, TIBC 324, % sat 8, and ferritin 11.6. Pt also with albumin 2.8. In review of
prior labs pt with hbg 8-11- range in last few years. In ER stool was brown and heme neg. she was also noted with urinary retention with urology eval on admission and difficulty duarte placement. She denies any hx EGD or colonoscopy in past.
-microcytic iron deficiency anemia
-pancytopenia
-moderate HH per prior imaging
-urinary retention and difficulty duaret placement during admission
-hypoalbuminemia
-prior noted abdominal ascites on imaging
-DVT on Eliquis prior to admission
other med problems:
-breast CA with ?prior lumpectomy and radiation
-hypothyroidism
-osteoporosis on Fosamax
-vitamin D deficiency
-DDD/scoliosis
-hypothyroidism
-venous stasis
-prior CT imaging with changes of right heart failure
-prior noted mild CBD dilatation 8.2 mm
PLAN:
etiology of anemia with iron deficiency related to underlying GI issue -josé luis lesion with hx HH, PUD, esophagitis with hx fosamax use, underlying AVM, colon CA/polyp with no prior screening vs other
with pancytopenia cannot exclude underlying heme vs underlying liver issue with portal HTN with anemia
s/p transfusion with hbg up to 8.9 today
will add IV iron
trend hbg
add PPI daily
pt was on Eliquis prior to admission last dose 06/05
discussed with hx breast CA and concern for underlying liver issue consider CT, Also discussed with Iron deficiency anemia will need to consider EGD/colon if neg capsule
she states she is decision maker and declines further testing stating it is 'overkill with testing'
she also declined for me to call family
she politely declines testing and is aware that underlying liver disease, malignancy or other occult process can be missed without testing
I advised her to consider options and Dr. Bolanos will review again with per today
cont diet as tolerated
OP follow up to further review if patient is agreeable to proceed with testing
-
-
Thank you for consultation and allowing me to participate in the patient's care. Please call the operations logistics analyst GI physician during the after hours with any questions or concerns.
[2024-06-06 10:27] LABS: TSH Reflex To Free T4 5.31 uIU/ml (0.47-4.68)
[2024-06-06 10:55] LABS: Free T4 1.48 ng/dl (0.78-2.19)
[2024-06-06] MEDS: PROTONIX 40 MG PO (12:32)
--- NOTE | 2024-06-06 13:43 | W.PN.UPDATE ---
Update Note
Progress Note Update
reviewed with nursing. Pt frustrated with lab draws. Current hbg pending but no signs of aggressive bleeding will hold H/H later today and repeat in AM. further recs per Dr. Bolanos.
--- NOTE | 2024-06-06 13:59 | W.PN.HOSP.TC ---
Addendum entered and electronically signed by Marcelle Chase MD 06/06/24 17:41:
I saw and evaluated the patient independently. I reviewed the resident�s note and agree with findings and plan as documented by Dr. Bowden.
GENERAL: well developed, well nourished, female in no apparent distress
HEENT: NC/AT
HEART: regular rate and rhythm, +S1, +S2
LUNGS : clear to auscultation bilaterally
ABDOM: soft, nontender, nondistended, + bowel sounds
EXT: no cyanosis, clubbing, 4+ LE edema bilaterally-contractures to extremities
NEUROLOGIC: grossly intact
: duarte with clear yellow urine
SKIN: multiple scabs from skin picking
Anemia--likely acute on chronic from iron and B12 deficiency- iron studies c/w iron deficiency, B12 low normal, retic count normal--not on iron supplements--apprec GI--pt declines GI workup--s/p 2 units pRBC--since no procedure, can restart eliquis
Bilateral lower extremity swelling L>R--could be due to lymphedema--doubt DVT with eliquis--will check LE US for completeness
Acute urinary retention--853 on bladder scan, unable to straight cath--apprec urology--duarte cath placed--would d/c pt with duarte and f/u with urology to discuss suprapubic tube....
Hypothyroidism--Continue levothyroxine-- TSH OK
Essential hypertension--Continue labetalol and Lasix
History of DVT 2021--Unsure why she has been on Eliquis so long-- LE US neg for DVT--consider stopping Eliquis?
History of breast cancer--Continue letrozole
History of osteoporosis--Continue alendronate
History of vitamin D deficiency--Continue cholecalciferol
SCD for DVT proph
code status-- DNR
Original Note:
Today's Communication/Plan
-
Start ferrous sulfate and cyanocobalamin tablets
GI on board, patient declined any further workup for iron deficiency anemia.
Patient is competent and fully understands the risk of missing a potential neoplasm/malignancy or other source of bleeding.
Potential discharge
Assessment / Plan
Assessment / Plan
IMPRESSION:
Anemia possibly acute on chronic
Bilateral lower extremity swelling L>R
Acute urinary retention
Hypothyroidism
Essential hypertension
History of DVT
History of breast cancer
History of osteoporosis
History of vitamin D deficiency
PLAN:
Anemia due to iron and B12 deficiency
Does not look like acute blood loss or destruction of heme
Suspect low heme reserve
Hb improved to 8.3 after 2 units of PRBC
Low iron, ferritin, B12 levels
Start ferrous sulfate and cyanocobalamin tablets
GI on board, patient declined any further workup for iron deficiency anemia.
Patient is competent and fully understands the risk of missing a potential neoplasm/malignancy or other source of bleeding.
GI signed off.
Potential discharge with outpatient workup if patient changes her mind
Bilateral lower extremity swelling L>R
Unsure what the baseline is
Negative DVT on ultrasound
Acute urinary retention
853 on bladder scan, unable to straight cath
Urology following
Now patient is on Duarte
Voiding trials? before dc
History iron deficiency anemia
Check the above labs
Continue ferrous sulfate
Hypothyroidism
Continue levothyroxine
Essential hypertension
Continue labetalol and Lasix
History of DVT
Unsure why she has been on Eliquis
No history of A-fib
Check lower extremity ultrasound
Hold Eliquis
History of breast cancer
Continue letrozole
History of osteoporosis
Continue alendronate
History of vitamin D deficiency
Continue cholecalciferol
Holding Eliquis
SCD for DVT prophylaxis
Regular diet
DNR/DNI
Anticipated Discharge: Within 24 hours
Subjective/Interval History
-
Date of Service: June 06, 2024
Patient currently on Duarte due to acute urinary retention
Objective Data
-
Labs:
Laboratory Results
06/06/24 06/06/24 06/06/24
02:14 07:00 13:42
WBC 4.4 L
Hgb 8.4 L 8.9 L Cancelled
Hct 27.0 L 28.7 L Cancelled
Plt Count 93 L
Sodium 140
Potassium 4.2
Chloride 107
Carbon Dioxide 26
BUN 10
Creatinine 0.9
Glucose 89
Calcium 8.7
Vital Signs:
Vital Signs
Temp Pulse Resp BP Pulse Ox
98.9 F 77 20 119/49 93
06/06/24 07:30 06/06/24 07:30 06/06/24 07:30 06/06/24 08:28 06/06/24 07:30
I&O
06/05/24 06/06/24 06/07/24
06:59 06:59 06:59
Intake Total 500 / 500
Output Total 1550 / 1550
Balance -1050 / -1050
Review of Systems
-
All other systems: Reviewed and negative
Physical Exam
-
General: No Apparent Distress and Comfortable
HEENT: Normocephalic and Atraumatic
Respiratory: Clear to Auscultation; Negative Wheezes or Rales
Cardiac: Regular Rhythm and S1/S2
GI: Soft, Nontender and Nondistended
Genito-urinary: Duarte
Musculoskeletal: Edema, Left Lower Extrem
Skin: Warm and Dry
Neuro: AO x 3
Psych: Calm
Data Reviewed
-
Diagnostic Radiology: Report Reviewed by me and Discussed with Physician
Labs: Labs Reviewed by me and Discussed with Physician
[2024-06-06] MEDS: FERRLECIT 110 MG IV (14:00)
[2024-06-06 15:55] VITALS: BP 101/46
[2024-06-06 23:19] VITALS: BP 124/48
[2024-06-07] MEDS: SYNTHROID 50 MCG PO (05:34)
--- NOTE | 2024-06-07 06:26 | DOWNTIME ---
There was a [employer] Client Director Of Training Downtime on 06/07/2024 from 0200 to 06/08/2023 at 0318 . Downtime documentation of patient's care, including medication administrations, has been reconciled in the electronic record per guidelines. Refer to the
patient's paper chart under the miscellaneous tab to see printed paper medication records and downtime forms.
[2024-06-07 07:15] VITALS: BP 134/52
[2024-06-07 07:17] LABS: Hematocrit 27.3 % (37.0-47.0); Hemoglobin 8.4 g/dL (12.0-16.0); Mean Corp Hgb Conc. 30.8 g/dL (33.0-37.0); Mean Corpuscular Hgb 24.7 pg (27.0-31.0); Mean Corpuscular Volume 80.3 fL (81.0-99.0); Platelet Count 81 10^3/uL (130-400); Red Cell Dist. Width 19.6 % (11.5-14.5); White Blood Cell Count 3.5 10^3/uL (4.8-10.8)
[2024-06-07 07:18] LABS: INR 1.04; PT 14.1 Sec (11.4-14.6)
[2024-06-07 07:40] LABS: Blood Urea Nitrogen 9 mg/dl (7-17); Calcium 8.2 mg/dl (8.4-10.2); Carbon Dioxide 28 mmol/L (22-30); Chloride 108 mmol/L (98-107); Estimated Creatinine Clearance 40 ml/min; Glucose 83 mg/dl (70-99); Magnesium 2.4 mg/dl (1.6-2.3); Potassium 3.5 mmol/L (3.5-5.1); Sodium 138 mmol/L (135-145); eGFR > 60.00
[2024-06-07] MEDS: FEMARA 2.5 MG PO (08:40)
[2024-06-07] MEDS: PERIDEX 0.12% ORAL RINSE 15 ML PO (08:40)
[2024-06-07] MEDS: NEURONTIN 200 MG PO ×2 (08:40→15:14)
[2024-06-07] MEDS: OXYCONTIN (CONTROLLED RELEASE) 15 MG PO (08:40)
[2024-06-07] MEDS: TRANDATE 100 MG PO (08:41)
[2024-06-07] MEDS: VITAMIN B-12 250 MCG PO ×2 (08:41)
[2024-06-07] MEDS: PROZAC 20 MG PO (08:41)
[2024-06-07] MEDS: SODIUM CHLORIDE 1 GRAM PO (08:41)
[2024-06-07] MEDS: PROTONIX 40 MG PO (08:41)
[2024-06-07] MEDS: THERAGRAN 1 TABLET PO (08:42)
[2024-06-07] MEDS: LASIX 20 MG PO (08:42)
[2024-06-07] MEDS: KCL 20 MEQ PO (08:42)
[2024-06-07] MEDS: FEOSOL 325 MG PO (08:42)
--- NOTE | 2024-06-07 08:42 | W.PN.URO.CBU ---
Today's Communication / Plan
-
continue duarte
start bethanechol
Assessment / Plan
-
urinary retention
very difficult duarte
suspect retention may be chronic given volume of urine in the bladder
urine remains clear- ok to restart eliquis when medically indicated
start bethanechol
would rec discharge with duarte if going home soon- then schedule outpt f/u
if here until tuesday- could perform voiding trial in house
Diagnosis
-
Date of Service: June 07, 2024
-
Patient Diagnosis:
anemia
urinary retention
difficult duarte placement
Subjective
-
pt c/o of leg pain
doesnt realize she has a duarte in
urine clear
appears no ucx sent- but no signs of infx
Objective
-
Vital Signs
Temp Pulse Resp BP Pulse Ox
98.5 F 74 16 134/52 92
06/06/24 23:19 06/07/24 07:15 06/07/24 07:15 06/07/24 07:15 06/07/24 07:15
Intake and Output
06/06/24 06/07/24 06/08/24
06:59 06:59 06:59
Intake Total 500 / 500 600 / 600
Output Total 1550 / 1550 1075 / 1075
Balance -1050 / -1050 -475 / -475
Intake:
Oral fluids 0 / 0 600 / 600
Blood Product Amount Infused ( 500 / 500
mL)
Packed Rbc Leukoreduced Unit 250 / 250
[id number]
Packed Rbc Leukoreduced Unit 250 / 250
[id number]
Output:
Urine, Duarte 1550 / 1550 1075 / 1075
Laboratory Results
06/07/24 06:10
06/07/24 06:10
Review of Systems
-
Constitutional: Fatigue
Respiratory: No Symptoms
Cardiac: No Symptoms
Abdomen/GI: No Symptoms
Musculoskeletal: Joint Pain
Physical Exam
-
General - no acute distress
Abdomen - soft, non-tender
Extremities - contracted
[2024-06-07 09:34] VITALS: BP 133/59; PULSE 76
--- NOTE | 2024-06-07 11:24 | W.PN.HOSP.TC ---
Addendum entered and electronically signed by Marcelle Chase MD 06/07/24 14:00:
I saw and evaluated the patient independently. I reviewed the resident�s note and agree with findings and plan as documented by Dr. Bowden.
GENERAL: well developed, well nourished, female in no apparent distress
HEENT: NC/AT
HEART: regular rate and rhythm, +S1, +S2
LUNGS : clear to auscultation bilaterally
ABDOM: soft, nontender, nondistended, + bowel sounds
EXT: no cyanosis, clubbing, 4+ LE edema bilaterally-contractures to extremities
NEUROLOGIC: grossly intact
: duarte with clear yellow urine
SKIN: multiple scabs from skin picking
Anemia--likely acute on chronic from iron and B12 deficiency- iron studies c/w iron deficiency, B12 low normal, retic count normal--not on iron supplements prior to admission--apprec GI--pt declines GI workup--s/p 2 units pRBC--since no procedure,
can restart eliquis
Bilateral lower extremity swelling L>R--could be due to lymphedema--doubt DVT with eliquis-- LE US neg for DVT
Acute urinary retention--853 on bladder scan, unable to straight cath--apprec urology--duarte cath placed--would d/c pt with duarte and f/u with urology to discuss suprapubic tube....
Hypothyroidism--Continue levothyroxine-- TSH OK
Essential hypertension--Continue labetalol and Lasix
History of DVT 2021--Unsure why she has been on Eliquis so long-- LE US neg for DVT--consider stopping Eliquis?
History of breast cancer--Continue letrozole
History of osteoporosis--Continue alendronate
History of vitamin D deficiency--Continue cholecalciferol
SCD for DVT proph
code status-- DNR
ok for d/c
Original Note:
Today's Communication/Plan
-
Discharged on Duarte catheter to [place]
Follow-up with outpatient urology -- discussion for suprapubic catheter
Start bethanechol 25 mg p.o. twice daily
Assessment / Plan
Assessment / Plan
IMPRESSION:
Anemia possibly acute on chronic
Bilateral lower extremity swelling L>R
Acute urinary retention
Hypothyroidism
Essential hypertension
History of DVT
History of breast cancer
History of osteoporosis
History of vitamin D deficiency
PLAN:
Anemia due to iron and B12 deficiency
Does not look like acute blood loss or destruction of heme
Suspect low heme reserve
Hb improved to 8.3 after 2 units of PRBC
Low iron, ferritin, B12 levels
Start ferrous sulfate and cyanocobalamin tablets
GI on board, patient declined any further workup for iron deficiency anemia.
Patient is competent and fully understands the risk of missing a potential neoplasm/malignancy or other source of bleeding.
GI signed off.
Discharge planning to [place]
Bilateral lower extremity swelling L>R
Unsure what the baseline is
Negative DVT on ultrasound
Acute urinary retention
853 on bladder scan, unable to straight cath
Discharged on Duarte catheter
Follow-up with outpatient urology
Start bethanechol 25 mg p.o. twice daily
History iron deficiency anemia
Check the above labs
Continue ferrous sulfate
Hypothyroidism
Continue levothyroxine
Essential hypertension
Continue labetalol and Lasix
History of DVT
Unsure why she has been on Eliquis
No history of A-fib
Check lower extremity ultrasound
Hold Eliquis
History of breast cancer
Continue letrozole
History of osteoporosis
Continue alendronate
History of vitamin D deficiency
Continue cholecalciferol
Holding Eliquis
SCD for DVT prophylaxis
Regular diet
DNR/DNI
Anticipated Discharge: Today
Subjective/Interval History
-
Date of Service: June 07, 2024
No overnight events
Objective Data
-
Labs:
Laboratory Results
06/07/24
06:10
WBC 3.5 L
Hgb 8.4 L
Hct 27.3 L
Plt Count 81 L
PT 14.1
INR 1.04
Sodium 138
Potassium 3.5
Chloride 108 H
Carbon Dioxide 28
BUN 9
Creatinine 0.8
Glucose 83
Calcium 8.2 L
Vital Signs:
Vital Signs
Temp Pulse Resp BP Pulse Ox
98.5 F 74 16 134/52 92
06/06/24 23:19 06/07/24 07:15 06/07/24 07:15 06/07/24 07:15 06/07/24 09:06
I&O
06/06/24 06/07/24 06/08/24
06:59 06:59 06:59
Intake Total 500 / 500 600 / 600
Output Total 1550 / 1550 1075 / 1075
Balance -1050 / -1050 -475 / -475
Review of Systems
-
All other systems: Reviewed and negative
Physical Exam
-
General: No Apparent Distress
HEENT: Normocephalic and Atraumatic
Respiratory: Clear to Auscultation
Cardiac: Regular Rhythm and S1/S2
Genito-urinary: Duarte
Neuro: AO x 3
Psych: Calm
Data Reviewed
-
Labs: Labs Reviewed by me and Discussed with Physician
--- NOTE | 2024-06-07 12:10 | W.DCSUMMARY ---
Addendum entered and electronically signed by Marcelle Chase MD 06/07/24 14:03:
Read, reviewed, and agree. See same day progress note for additional details. Time spent coordinating care, DC planning, review of DC plan of care with resident, transition of care, review of records in EMR, med rec, consults, notes, d/w
consultants, nursing, family, and CM = 31 minutes
Original Note:
Discharge Summary
Discharge Data
Date of Admission: 06/05/24
Date of Discharge: 06/07/24
-
Pending Results: No
Hospital Course
Discharging Physician : Dr Leopoldo Bowden, Dr Marcelle Chase
Disposition : SNF
Primary care physician : Dr. Elton López
Principal Discharge diagnosis :
Anemia due to iron and B12 deficiency
Bilateral lower extremity swelling L>R
Acute urinary retention
Chronic Discharge diagnosis :
Hypothyroidism
Essential hypertension
History of DVT
History of breast cancer
History of osteoporosis
History of vitamin D deficiency
Hospital Course : 79-year-old female presented with hemoglobin of 5.5. Patient was given 2 units of blood in the ED and her hemoglobin improved to 8.3. Patient had no concerns of hemoptysis, hematuria, hematochezia, fatigue, for palpitations or
any trauma. Labs showed low iron, B12, ferritin with normal reticulocyte count. Ferrous sulfate and cyanocobalamin tablets were initiated. GI was consulted for further workup of iron deficiency anemia. Patient declined any further workup for
iron deficiency anemia. Patient is competent and fully understand the risk of missing a potential neoplasm/malignancy or other source of bleeding. Bonilla catheter was started as patient was retaining urine, 853 on bladder scan, unable to straight
cath. Patient will be discharged with Bonilla catheter and advised to follow-up with outpatient urology to discuss suprapubic tube. Recommended to start bethanechol 25 mg p.o. twice daily at discharge.
Important imaging findings :
06/07/24 Peripheral vascular ultrasound
No evidence of deep venous thrombosis in the visualized bilateral lower extremities.
Procedure findings : none
Discharge Plan
-
Patient Disposition: Long Term/SNF
Discharge Diagnosis/Procedures: Anemia due to iron and B12 deficiency
Bilateral lower extremity swelling L>R
Acute urinary retention
Hypothyroidism
Essential hypertension
History of DVT
History of breast cancer
History of osteoporosis
History of vitamin D deficiency
Condition: Good
Diet: Low Sodium
Activity: No restrictions
Driving Restrictions: As prior to admission
Bathing Restrictions: None
Blood Work: cbc in one week
Referrals:
Elton López MD [Family Provider] - in less than 1 week
Lino Bolanos DO [Active] - (as instructed)
Additional Discharge Medication Instructions:
Iron-deficiency anemia-start taking ferrous sulfate 325 mg daily
B12 deficiency-start taking cyanocobalamin 250 mcg daily
Please f/u with urologist for catheter discussion.
Start taking bethanechol chloride 25 mg, 1 tablet twice daily
Prescriptions:
New
cyanocobalamin (vitamin B-12) 100 mcg Tablet
250 mcg PO DAILY Qty: 30 0RF
ferrous sulfate [FeroSul] 325 mg (65 mg iron) Tablet
325 mg PO DAILY Qty: 30 0RF
bethanechol chloride 25 mg Tablet
25 mg PO BID Qty: 30 0RF
Continued
labetalol 100 MG tablet
100 mg PO BID
letrozole 2.5 MG tablet
2.5 mg PO DAILY
multivitamin with folic acid [Tab-A-Genesis] 1 TABLET tablet
1 tab PO DAILY
cholecalciferol (vitamin D3) 125 MCG tablet,disintegrating
125 mcg PO MONTHLY
acetaminophen 325 MG tablet
650 mg PO Q6HPRN PRN (Reason: mild to moderate pain)
levothyroxine 100 MCG tablet
50 mcg PO DAILY
Eliquis 2.5 MG tablet
2.5 mg PO BID Qty: 60 0RF
alendronate [Fosamax] 70 mg Tablet
70 mg PO FR
sodium chloride 1 gram Tablet
1,000 mg PO DAILY
magnesium hydroxide [Milk of Magnesia] 400 mg/5 mL Suspension
2,400 mg PO HSPRN PRN (Reason: if no bm by 2nd day)
bisacodyl [Dulcolax (bisacodyl)] 10 mg Suppository
10 mg FL DAILYPRN PRN (Reason: if no bm by 3rd day)
Fleet Enema 19-7 gram/118 mL Enema
118 ml FL DAILYPRN PRN (Reason: if no bm by 4th day)
nystatin 100,000 unit/gram Powder
1 applic TOPICAL BIDPRN PRN (Reason: groin/folds)
fluoxetine 20 mg Capsule
20 mg PO DAILY
fluoride (sodium) [PreviDent] 1.1 % Gel
1 applic DENTAL HS
oxycodone 5 mg Tablet
5 mg PO Q6HPRN PRN (Reason: severe pain)
chlorhexidine gluconate [Peridex] 0.12 % Mouthwash
15 ml BUCCAL BID
potassium chloride 20 mEq Tablet Extended Release
20 meq PO BID
oxycodone [OxyContin] 15 mg Tablet,Oral Only,Ext.Rel.12 Hr
15 mg PO BID
furosemide 40 MG tablet
20 mg PO DAILY
gabapentin 100 MG capsule
200 mg PO TID
Discharge Orders:
Discharge Patient (As Directed); Ordered 06/07/24
Ordered By: Leopoldo Bowden
Discharge Date and Time
Print Language: SWEDISH
--- NOTE | 2024-06-07 12:40 | PTCARENOTE ---
Addendum entered by Kourtney Del Cid RN 06/07/24 15:20:
Ambulance picking belt operator time is 430pm. [facility] called and left message on time of picking belt operator. Peripheral IV removed.
Addendum entered by Kourtney Del Cid RN 06/07/24 12:57:
Report called to ANNE Warren at [facility]. Awaiting transport time.
Original Note:
Called [facility] to give report without answer. Left a voicemail message with phone number to call back. Awaiting transport picking belt operator time.
--- NOTE | 2024-06-07 14:04 | CM ---
Addendum entered by Jennifer Landa 06/07/24 14:24:
left for patient brother, reviewed IMM information and provided form to patient.
Addendum entered by Jennifer Landa 06/07/24 14:13:
Patient brother did not answer phone, When Physician attempted to call.
Original Note:
Patient seen at bedside with physicians. Patient for return to SNF; [facility] [phone]. Patient for transportation via ambulance, CM will send transportation forms to unit. CM will call to patient brother with physician. CM will
continue to follow for discharge planning needs.
Plan;transfer back to SNF;[facility]
[2024-06-07] MEDS: FERRLECIT 110 MG IV (15:14)
[2024-06-07 15:15] VITALS: BP 111/35
== END 2024-06-07 16:46 | DRG 812 ==
LOC: 4 EAST ACU 16:22
PROVIDERS: Nurse Practitioner Adult Health; Student in an Organized Health Care Education/Training Program; ADMITTING PHYSICIAN Internal Medicine; CONSULT PHYSICIAN Specialist; CONSULT PHYSICIAN Student in an Organized Health Care Education/Training Program; EMERGENCY PHYSICIAN Emergency Medicine; FAMILY PHYSICIAN Family Medicine
PROC: 30233N1 Transfusion of Nonautologous Red Blood Cells into Peripheral Vein, Percutaneous Approach (ICD-10-PCS; 2024-06-05)
DX: D50.9 Iron deficiency anemia, unspecified (principal); D61.818 Other pancytopenia; D51.9 Vitamin B12 deficiency anemia, unspecified; E03.9 Hypothyroidism, unspecified; Z87.891 Personal history of nicotine dependence; I50.810 Right heart failure, unspecified; I11.0 Hypertensive heart disease with heart failure; Z86.718 Personal history of other venous thrombosis and embolism; Z85.3 Personal history of malignant neoplasm of breast; M81.0 Age-related osteoporosis without current pathological fracture; E55.9 Vitamin D deficiency, unspecified; Z66 Do not resuscitate; Z79.811 Long term (current) use of aromatase inhibitors; Z92.3 Personal history of irradiation; M16.0 Bilateral primary osteoarthritis of hip; E78.5 Hyperlipidemia, unspecified; E88.09 Other disorders of plasma-protein metabolism, not elsewhere classified; F41.9 Anxiety disorder, unspecified; I48.91 Unspecified atrial fibrillation; I87.2 Venous insufficiency (chronic) (peripheral); M41.9 Scoliosis, unspecified; Z79.01 Long term (current) use of anticoagulants; Z79.83 Long term (current) use of bisphosphonates
CPT/HCPCS: 36415; 80048; 80053; 82607; 82728; 82746; 83540; 83550; 83735; 84439; 84443; 85014; 85018; 85025; 85027; 85045; 85610; 86850; 86900; 86901; 86920; 93005; 93970; 97163; 99285; J2916; P9016

== ENCOUNTER → 2024-06-11 11:59 | Outpatient (REF) | payer MEDICARE, BC, SELFPAY ==
[2024-06-11 12:41] LABS: Hematocrit 30.4 % (37.0-47.0); Hemoglobin 9.4 g/dL (12.0-16.0); Mean Corp Hgb Conc. 30.9 g/dL (33.0-37.0); Mean Corpuscular Hgb 25.5 pg (27.0-31.0); Mean Corpuscular Volume 82.4 fL (81.0-99.0); Mean Platelet Volume 9.4 fL (7.4-10.4); Platelet Count 103 10^3/uL (130-400); Red Blood Cell Count 3.69 10^6/uL (4.20-5.40); Red Cell Dist. Width 21.7 % (11.5-14.5); White Blood Cell Count 4.7 10^3/uL (4.8-10.8)
[2024-06-11 12:59] LABS: ALT (SGPT) 15 U/L (0-35); AST (SGOT) 23 U/L (14-36); Albumin 2.7 g/dl (3.5-5.0); Alkaline Phosphatase 64 U/L (38-126); Blood Urea Nitrogen 13 mg/dl (7-17); Carbon Dioxide 26 mmol/L (22-30); Chloride 107 mmol/L (98-107); Glucose 88 mg/dl (70-99); Magnesium 1.8 mg/dl (1.6-2.3); Potassium 3.9 mmol/L (3.5-5.1); Sodium 138 mmol/L (135-145); Total Bilirubin 0.7 mg/dl (0.2-1.3); eGFR > 60.00
== END ==
LOC: CLAB 11:59
PROVIDERS: ATTENDING PHYSICIAN Family Medicine
DX: E87.6 Hypokalemia (principal); Z79.01 Long term (current) use of anticoagulants; I10 Essential (primary) hypertension; D50.9 Iron deficiency anemia, unspecified
CPT/HCPCS: 36415; 80053; 83735; 85027